=== PATIENT | female | born 1945 | race Caucasian/White ===

== ENCOUNTER 2024-06-11 18:54 | Emergency (ER) | payer MEDICAID, OTHER ==
[~2024-06-11] VITALS: Ht 152.4 cm; Wt 75.0 kg
[2024-06-11 18:56] VITALS: O2SAT 98
[2024-06-11] MEDS: IBUPROFEN 400MG TABLET PO ONE (19:30)
[2024-06-11] MEDS: ACETAMINOPHEN 325MG TABLET PO ONE (20:50)
[2024-06-11] MEDS ORDERED: NAPR-677 MT (20:53)
[2024-06-11 21:27] VITALS: BP 154/74; PULSE 71; RESP 16; TEMP 98.3
== END 2024-06-11 21:32 | disposition home or self-care (01) ==
LOC: ER 18:54
DX: M25.521 Pain in right elbow (principal); M25.511 Pain in right shoulder; E11.9 Type 2 diabetes mellitus without complications; F19.90 Other psychoactive substance use, unspecified, uncomplicated; I10 Essential (primary) hypertension; Z88.8 Allergy status to other drugs, medicaments and biological substances
CPT/HCPCS: 73030; 73060; 73070; 99284